=== PATIENT | female | born 1950 | race African-American/Black ===

== ENCOUNTER 2016-04-24 16:32 | Emergency (ER) | payer OTHER ==
[2016-04-24 17:28] VITALS: BMI 26.6
[2016-04-24] MEDS ORDERED: ACETAMINOPHEN 325 MG TABLET (FP) PO ONE (17:28)
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
[2016-04-24] MEDS ORDERED: ACETAMINOPHEN 325 MG TABLET (FP) ONE (17:51)
[2016-04-24 21:42] VITALS: BP 128/74; PULSE 80; TEMP 98.6
== END 2016-04-24 21:36 | disposition home or self-care (01) ==
LOC: JER 16:32
DX: Z04.1 Encounter for examination and observation following transport accident (principal); V43.52XA Car driver injured in collision with other type car in traffic accident, initial encounter; Y93.89 Activity, other specified; Y92.410 Unspecified street and highway as the place of occurrence of the external cause; M26.602 Left temporomandibular joint disorder, unspecified; I10 Essential (primary) hypertension; R42 Dizziness and giddiness; Z87.891 Personal history of nicotine dependence
CPT/HCPCS: 70450-TC; 71020-TC; 72070-TC; 72100-TC; 72125-TC; 73562-TC-RT; 99281-25

== ENCOUNTER 2017-03-17 01:41 | Emergency (ER) | payer OTHER ==
[2017-03-17] MEDS ORDERED: SODIUM CHLORIDE 500 ML IV STA (02:23)
[2017-03-17] MEDS ORDERED: KETOROLAC TROMETHAMINE 30 MG/1 ML VIAL IVPUSH ONE (02:23)
[2017-03-17] MEDS ORDERED: diazePAM CARPU-JECT 10 MG/2 ML DISP.SYRIN IVPUSH ONE (02:23)
--- NOTE | 2017-03-17 02:29 | PDOC ---
History of Present Illness - General Chief Complaint: Pain Stated Complaint: NECK PAIN Time Seen by Provider: 03/17/17 02:08 History Source: Patient Exam Limitations: No Limitations - History of Present Illness Initial Comments: 03/17/17 02:25 66yo Female patient w/ PmHx: HTN, Lumbar and Cervical Radiculopathy presents to ED c/o neck pain, immobility. Patient states symptoms began yesterday after having MRI of neck and brain. Patient states she was subjected to uncomfortable position and woke up this morning with neck pain. She reports using OTC topical preparations with minimal relief. She denies any other complaints at this time. Orthopedist- Dr. Quiroz ([facility]). Timing/Duration: 24 hours, getting worse Severity: severe Modifying Factors: improves with: immobilization, medication, rest Associated Symptoms: reports: headaches. denies: denies symptoms, chest pain, cough, diaphoresis, fever/chills, loss of appetite, malaise, nausea/vomiting, rash, seizure, shortness of breath, syncope, weakness, other Aspirin Received prior to arrival: No: no aspirin today, unknown, 81 mg x 1, 81 mg x 2, 81 mg x 3, 81 mg x 4, 325 mg x 1, provided at home, provided by EMS, provided by ED Past History - Travel Traveled outside of the country in the last 30 days: No Close contact w/someone who was outside of country & ill: No - Past Medical History Allergies/Adverse Reactions: Allergies Allergy/AdvReac Type Severity Reaction Status Date / Time morphine Allergy Verified 03/17/17 02:05 Penicillins Allergy Verified 03/17/17 02:05 Home Medications: Ambulatory Orders Unobtainable Home Med List 0 dose .ROUTE UTDICT 11/25/11 Amlodipine Besylate [Norvasc] mg PO DAILY 11/01/12 Gabapentin [Neurontin] mg PO Q8H 11/01/12 Magnesium mg PO 11/01/12 Dexamethasone [Decadron -] 4 mg PO BID #14 tablet 03/17/17 Ibuprofen [Motrin -] 600 mg PO Q6H PRN #20 tablet 03/17/17 Methocarbamol [Robaxin -] 500 mg PO TID PRN #21 tablet 03/17/17 COPD: No HTN: Yes Other medical history: Lumbar radiculopathy - Immunization History Td Vaccination: Yes Immunization Up to Date: Yes - Suicide/Smoking/Psychosocial Hx Smoking Status: No Smoking History: Never smoked Years of Tobacco Use: 0 Have you smoked in the past 12 months: No Number of Cigarettes Smoked Daily: 0 Cigars Per Day: 0 Information on smoking cessation initiated: No Hx Alcohol Use: No Drug/Substance Use Hx: No Substance Use Type: None Review of Systems - Review of Systems Able to Perform ROS?: Yes Is the patient limited Maldivian proficient: No Constitutional: No: Chills, Fever Respiratory: No: Cough, Shortness of Breath, Stridor, Wheezing Cardiac (ROS): No: Chest Pain Musculoskeletal: Yes: Neck Pain Neurological: Yes: Headache All Other Systems: Reviewed and Negative *Physical Exam - Vital Signs Last Vital Signs Temp Pulse Resp BP Pulse Ox 98.1 F 82 18 145/81 97 03/17/17 02:05 03/17/17 02:05 03/17/17 02:05 03/17/17 02:05 03/17/17 02:05 - Physical Exam General Appearance: Yes: Nourished, Appropriately Dressed, Moderate Distress. No: Apparent Distress, Mild Distress, Severe Distress HEENT: positive: EOMI, WILLIS, Normal ENT Inspection, Normal Voice, Symmetrical, TMs Normal, Pharynx Normal. negative: Pharyngeal Erythema, Tonsillar Exudate, Tonsillar Erythema, Nasal Congestion, Rhinorrhea, Sinus Tenderness, TM Bulging, TM Dull, TM Erythema Neck: positive: Trachea midline, Supple, Decreased range of motion, Tender lateral. negative: Rigid, Stridor, Lymphadenopathy (R), Lymphadenopathy (L), Rigidity, Tender midline Respiratory/Chest: positive: Lungs Clear, Normal Breath Sounds. negative: Chest Tender, Respiratory Distress, Accessory Muscle Use, Labored Respiration, Rapid RR, Decreased Breath Sounds, Paradoxal Breathing, Rhonchi, Stridor, Wheezing Cardiovascular: positive: Regular Rhythm, Regular Rate Musculoskeletal: positive: Normal Inspection. negative: CVA Tenderness, Decreased Range of Motion, Vertebral Tenderness Extremity: positive: Normal Capillary Refill, Normal Inspection, Normal Range of Motion. negative: Pedal Edema, Swelling, Calf Tenderness, Erythema, Inflammation Integumentary: positive: Normal Color, Dry, Warm Neurologic: positive: house admin II-XII NML intact, Fully Oriented, Alert, Normal Mood/ Affect, Normal Response, Motor Strength 5/5 ED Treatment Course - LABORATORY CBC & Chemistry Diagram: 03/17/17 02:42 03/17/17 02:42 - RADIOLOGY Radiology Studies Ordered: Category Date Time Status CERVICAL SPINE CT W/O CONTR [CT] Stat CT Scan 03/17/17 02:[address] WITHOUT CONTRAST [CT] Stat CT Scan 03/17/17 02:23 Ordered *DC/Admit/Observation/Transfer Diagnosis at time of Disposition: Cervical radiculopathy - Discharge Dispostion Disposition: HOME Condition at time of disposition: Improved Admit: No - Prescriptions Prescriptions: Dexamethasone [Decadron -] 4 mg PO BID #14 tablet Ibuprofen [Motrin -] 600 mg PO Q6H PRN #20 tablet PRN Reason: Mild Pain Methocarbamol [Robaxin -] 500 mg PO TID PRN #21 tablet PRN Reason: neck and back pain - Referrals Referrals: Azra Gregory MD [Primary Care Provider] - Flavio Syed MD [Staff Physician] - - Patient Instructions Printed Discharge Instructions: DI for Cervical Radiculopathy Additional Instructions: Follow up with your orthopedist/primary care provider this week as scheduled. Or follow up with Dr. Syed (Orthopedic). Call to schedule your appointments. Take medications as prescribed. Return if symptoms worsen or any concerns for further evaluation. Take warm showers. Rest. Apply warm compress as needed. Print Language: SPANISH - Post Discharge Activity
[2017-03-17 02:34] VITALS: BP 145/81; PULSE 82; TEMP 98.1; BMI 26.0
[2017-03-17] MEDS ORDERED: METHOCARBAMOL 500 MG TABLET PO ONE (02:43)
[2017-03-17] MEDS ORDERED: DEXAMETHASONE SOD PHOSPHATE 10 MG/1 ML VIAL IVPUSH ONE (02:47)
[2017-03-17 03:33] LABS: MCH 26.2 pg (25.7-33.7); MEAN CELL VOLUME 81.8 fl (80-96); MEAN PLT VOLUME 9.6 fl (7.5-11.1); PLATELET COUNT 248 K/MM3 (134-434); RDW 14.9 % (11.6-15.6); WHITE BLOOD COUNT 5.7 K/mm3 (4.0-10.0)
[2017-03-17] MEDS ORDERED: DEXAMETHASONE SOD PHOSPHATE 10 MG/1 ML VIAL ONE (03:53)
[2017-03-17] MEDS ORDERED: METHOCARBAMOL 500 MG TABLET ONE (03:53)
[2017-03-17] MEDS ORDERED: KETOROLAC TROMETHAMINE 30 MG/1 ML VIAL ONE (03:53)
[2017-03-17 04:00] LABS: ALBUMIN 3.6 g/dl (3.4-5.0); ALK PHOS 115 U/L (45-117); ANION GAP 9 (8-16); BILIRUBIN,TOTAL 0.3 mg/dL (0.2-1.0); CALCIUM 8.8 mg/dL (8.5-10.1); CO2 26 mmol/L (21-32); CPK 115 IU/L (26-192); CREATININE 0.7 mg/dL (0.55-1.02); GLUCOSE,RANDOM 102 mg/dL (74-106); SGOT/AST 13 U/L (15-37); SGPT/ALT 20 U/L (12-78); TOT PROT 7.6 g/dl (6.4-8.2)
== END 2017-03-17 04:58 | disposition home or self-care (01) ==
LOC: JER 01:41
PROC: 3E0337Z Introduction of Electrolytic and Water Balance Substance into Peripheral Vein, Percutaneous Approach (ICD-10-PCS; principal; 2017-03-17)
PROC: 3E0333Z Introduction of Anti-inflammatory into Peripheral Vein, Percutaneous Approach (ICD-10-PCS; 2017-03-17)
PROC: 3E0333Z Introduction of Anti-inflammatory into Peripheral Vein, Percutaneous Approach (ICD-10-PCS; 2017-03-17)
DX: M54.12 Radiculopathy, cervical region (principal)
CPT/HCPCS: 36415; 70450-TC; 72125-TC; 80053; 82550; 85027; 99283-25

== ENCOUNTER 2018-02-26 15:21 | Emergency (ER) | payer OTHER ==
[2018-02-26 15:40] VITALS: BP 143/93; PULSE 82; TEMP 98.8; BMI 25.7
--- NOTE | 2018-02-26 15:44 | PDOC ---
Rapid Medical Evaluation Chief Complaint: Rectal Bleed Time Seen by Provider: 02/26/18 15:41 Medical Evaluation: Allergies Allergy/AdvReac Type Severity Reaction Status Date / Time morphine Allergy Verified 02/26/18 15:40 Penicillins Allergy Verified 02/26/18 15:40 Vital Signs Temp Pulse Resp BP Pulse Ox 98.8 F 82 18 143/93 98 02/26/18 15:34 02/26/18 15:34 02/26/18 15:34 02/26/18 15:34 02/26/18 15:34 02/26/18 15:41 I have performed a brief in-person evaluation of this patient. The patient presents with a chief complaint of: h/o constipation and hemorrhoids presenting with blood in stool this AM. Denies any other symptoms Pertinent physical exam findings: A&O x 3 I have ordered the following: cbc,cmp, UA The patient will proceed to the ED for further evaluation. Discharge Disposition - Diagnosis Rectal bleed - Referrals - Patient Instructions - Post Discharge Activity
--- NOTE | 2018-02-26 16:15 | PDOC ---
Attending Attestation - HPI HPI: 02/26/18 18:03 The patient is a 67 year old female with a significant past medical history of chronic back pain and HTN who presents to the ED with complaints of rectal bleeding since earlier today. Patient reports 3 months of constipation with one bowel movement per day. Patient reports she had one bowel movement earlier today that was consistent of blood streaks in the stool. Patient called her GI and PCP and was told to come into the ED. Denies fever or chills. Denies abdominal pain, nausea, vomiting, or diarrhea. Denies any other symptoms. - Physicial Exam PE: 02/26/18 18:03 Constitutional: Awake, alert, oriented. No acute distress. Head: Normocephalic. Atraumatic Eyes: PERRL. EOMI. Conjunctivae are not pale. ENT: Mucous membranes are moist and intact. Posterior pharynx without exudates or erythema. Uvula midline. Neck: Supple. Full ROM. No lymphadenopathy. Cardiovascular: Regular rate. Regular rhythm. S1, S2 regular. Distal pulses are 2+ and symmetric. Pulmonary/Chest: No evidence of respiratory distress. Clear to auscultation bilaterally No wheezing, rales or rhonchi. Abdominal: Soft and non-distended. There is no tenderness. No rebound, guarding or rigidity. No organomegaly. No palpable masses. Good bowel sounds. Back: No CVA tenderness. Musculoskeletal: No edema. No cyanosis. No clubbing. Full range of motion in all extremities. Nocalf tenderness. Radial/pedal pulses are intact and 2+ bilaterally Skin: Skin is warm and dry. No petechiae. No purpura. Neurological: Alert and oriented to person, place, and time. Cranial nerves II -XII are grossly intact. Normal speech. Strength is grossly symmetric. No sensory deficits. Psychiatric: Good eye contact. Normal interaction, affect and behavior. <Jovanni Hernandez - Last Filed: 02/26/18 18:03> - Resident Resident Name: Clay Mena - ED Attending Attestation I have performed the following: I have examined & evaluated the patient, The case was reviewed & discussed with the resident, I agree w/resident's findings & plan, Exceptions are as noted - Medical Decision Making 02/26/18 16:15 I, Dr. June Levy, DO, attest that this document has been prepared under my direction and personally reviewed by me in its entirety. I further attest, that it accurately reflects all work, treatment, procedures and medical decision -making performed by me. 02/26/18 17:46 a/p: 67yo female with 1 episode of BRBPR -blood streaked stool -constipation x 3 months -will send labs, rectal for heme, ct abd/pelvis w iv contrast only -will monitor and reassess -will give ivf hydration 02/26/18 18:31 hgb 12 02/26/18 21:[address] findings and labs in full detail pt has a lower in supervisor and will call tomorrow for an appt has GI for follow up of rectal bleeding discussed granulomatous disease near spleen for follow up with GI discussed pulmonary nodules <June Levy - Last Filed: 02/26/18 21:59> *DC/Admit/Observation/Transfer - Discharge Dispostion Decision to Admit order: No <June Levy - Last Filed: 02/26/18 21:59> Diagnosis at time of Disposition: Rectal bleed, Pulmonary nodule, Enlarged ovary, Hepatic cyst, Renal cyst - Discharge Dispostion Disposition: HOME Condition at time of disposition: Stable - Referrals Referrals: Ezra Gregory [Primary Care Provider] - Joaquin Wolfe MD [Staff Physician] - Issac Greene MD [Staff Physician] - Indio Solo MD [Staff Physician] - - Patient Instructions Printed Discharge Instructions: DI for Rectal Bleeding Additional Instructions: Please follow up with your REVENUE SETTLEMENTS ADMINISTRATOR tomorrow for further evaluation of the enlarged ovary. Please follow up with you GI specialist for eval of rectal bleeding today. Please follow up with your PMD and the lung specialist for eval of the pulmonary nodule. Please return to the ED with any further concerns or complaints. - Post Discharge Activity Attestations - Attestations 02/26/18 18:12 Documentation prepared by Jovanni Hernandez, acting as healthcare or medical for June Levy DO <Jovanni Hernandez - Last Filed: 02/26/18 18:03>
[2018-02-26 16:31] LABS: BASO % 1.2 % (0-2.0); EOS % 1.5 % (0-4.5); HEMOGLOBIN 12.1 GM/dL (10.7-15.3); MCH 27.5 pg (25.7-33.7); MCHC 33.6 g/dl (32.0-36.0); MEAN CELL VOLUME 81.9 fl (80-96); MEAN PLT VOLUME 9.6 fl (7.5-11.1); MONO % 8.8 % (3.8-10.2); NEUT % 49.5 % (42.8-82.8); PLATELET COUNT 234 K/MM3 (134-434); RDW 14.6 % (11.6-15.6); WHITE BLOOD COUNT 5.4 K/mm3 (4.0-10.0)
[2018-02-26 16:47] LABS: PROTHROMBIN TIME (PATIENT) 11.8 SEC (9.7-13.0)
[2018-02-26 16:48] LABS: URINE APPEARANCE CLEAR; URINE BILIRUBIN NEGATIVE (<2.0 mg/dL); URINE COLOR LTYELLOW; URINE GLUCOSE (UA) NEGATIVE (NEGATIVE); URINE KETONE NEGATIVE (NEGATIVE); URINE LEUK ESTERASE NEGATIVE (NEGATIVE); URINE NITRITE NEGATIVE (NEGATIVE); URINE PROTEIN NEGATIVE (NEGATIVE)
[2018-02-26 16:49] LABS: ACTIVATED PTT 29.2 SECONDS (25.2-36.5)
--- NOTE | 2018-02-26 17:03 | PDOC ---
History of Present Illness - General Chief Complaint: Rectal Bleed Stated Complaint: RECTAL BLEED Time Seen by Provider: 02/26/18 15:41 History Source: Patient Exam Limitations: No Limitations - History of Present Illness Initial Comments: 02/26/18 16:53 67 yo female pmh chronic back pain (takes Naproxen, no opiates and not on blood thinners) and HTN presents to the ED from home for blood in the stool. States she had 1 episode of blood streaked stools this am without blood filling the toilet, no blood after wiping or any blood leaking from the anus. Pt admits to 3 months of constipation averaging 1 BM per day with stools described as hard and painful to pass. Denies dizziness, lethargy, abdominal pain, CP, SOB, F/C/N/ V. Of note, pt states she had an episode 1 year ago and was told by orthopedic surgery that it was due an issue related to her back pain but has not had this issue since. Also, pt did call her GI Doctor (Renate) and PCP (Colt) regarding her blood streaked stools and was told to come to the ER. Past History - Past Medical History Allergies/Adverse Reactions: Allergies Allergy/AdvReac Type Severity Reaction Status Date / Time morphine Allergy Verified 02/26/18 15:40 Penicillins Allergy Verified 02/26/18 15:40 Home Medications: Ambulatory Orders Amlodipine Besylate [Norvasc] 5 mg PO DAILY 11/01/12 COPD: No HTN: Yes - Immunization History Td Vaccination: Yes Immunization Up to Date: Yes - Suicide/Smoking/Psychosocial Hx Smoking Status: No Smoking History: Never smoked Years of Tobacco Use: 0 Have you smoked in the past 12 months: No Number of Cigarettes Smoked Daily: 0 Cigars Per Day: 0 Hx Alcohol Use: No Drug/Substance Use Hx: No Substance Use Type: None Review of Systems - Review of Systems Constitutional: No: Chills, Fever Respiratory: No: Shortness of Breath Cardiac (ROS): No: Chest Pain, Edema ABD/GI: Yes: Constipated (3 months hard stool with painful BM). No: Nausea, Vomiting : No: Burning, Dysuria, Flank Pain Musculoskeletal: Yes: Back Pain (chronic) Neurological: No: Numbness, Paresthesia *Physical Exam - Vital Signs Last Vital Signs Temp Pulse Resp BP Pulse Ox 98.8 F 82 18 143/93 98 02/26/18 15:34 02/26/18 15:34 02/26/18 15:34 02/26/18 15:34 02/26/18 15:34 - Physical Exam General Appearance: Yes: Nourished, Appropriately Dressed. No: Apparent Distress HEENT: positive: EOMI Respiratory/Chest: positive: Lungs Clear, Normal Breath Sounds. negative: Crackles, Wheezing Cardiovascular: positive: Regular Rhythm, Regular Rate, S1, S2. negative: Edema , JVD, Murmur Vascular Pulses: Dorsalis-Pedis (R): 4+, Doralis-Pedis (L): 4+ Gastrointestinal/Abdominal: positive: Normal Bowel Sounds, Flat, Soft. negative : Distended, Guarding, Rebound, Tenderness Rectal Exam: positive: heme negative stool, normal exam, normal rectal tone. negative: hemorrhoids Extremity: positive: Normal Capillary Refill, Normal Inspection Integumentary: positive: Normal Color, Dry, Warm Neurologic: positive: Fully Oriented, Alert, Normal Mood/Affect, Normal Response Moderate Sedation - Procedure Monitoring Vital Signs: Procedure Monitoring Vital Signs Temperature 98.8 F 02/26/18 15:34 Pulse Rate 82 02/26/18 15:34 Respiratory Rate 18 02/26/18 15:34 Blood Pressure 143/93 02/26/18 15:34 O2 Sat by Pulse Oximetry (%) 98 02/26/18 15:34 ED Treatment Course - LABORATORY CBC & Chemistry Diagram: 02/26/18 16:04 02/26/18 16:04 - ADDITIONAL ORDERS Additional order review: Laboratory Results 02/26/18 02/26/18 16:04 16:04 PT with INR 11.80 INR 1.00 PTT (Actin FS) 29.2 Urine Color Ltyellow Urine Appearance Clear Urine pH 6.0 Ur Specific [place] 1.023 Urine Protein Negative Urine Glucose (UA) Negative Urine Ketones Negative Urine Blood Negative Urine Nitrite Negative Urine Bilirubin Negative Urine Urobilinogen 2.0 H Ur Leukocyte Esterase Negative 02/26/18 16:04 RBC 4.40 MCV 81.9 MCHC 33.6 RDW 14.6 MPV 9.6 Neutrophils % 49.5 Lymphocytes % 39.0 Monocytes % 8.8 Eosinophils % 1.5 Basophils % 1.2 Medical Decision Making - Medical Decision Making 02/26/18 19:40 67 yo female presents to the ED for 1 episode of blood streaked bowels today and 3 months of constipation with hard stools and pain on defecation. Denies lethargy or weakness DDX: hemorrhoids, anal fissures, diverticulitis, colitis, colon cancer Vitals wnl PE see note Lab work WNL, no anemia Neg stool occult CT abdomen pelvis negative for acute pathology Pt sent home with GI follow up *DC/Admit/Observation/Transfer Diagnosis at time of Disposition: Rectal bleed, Pulmonary nodule, Enlarged ovary, Hepatic cyst, Renal cyst - Discharge Dispostion Disposition: HOME - Referrals Referrals: Ezra Gregory [Primary Care Provider] - Joaquin Wolfe MD [Staff Physician] - Indio Solo MD [Staff Physician] - Issac Greene MD [Staff Physician] - - Patient Instructions Printed Discharge Instructions: DI for Rectal Bleeding Additional Instructions: Please follow up with your [facility] tomorrow for further evaluation of the enlarged ovary. Please follow up with you GI specialist for eval of rectal bleeding today. Please follow up with your PMD and the lung specialist for eval of the pulmonary nodule. Please return to the ED with any further concerns or complaints. - Post Discharge Activity
[2018-02-26 17:38] LABS: ALBUMIN 3.7 g/dl (3.4-5.0); ALK PHOS 113 U/L (45-117); ANION GAP 6 MMOL/L (8-16); BILIRUBIN,TOTAL 0.3 mg/dL (0.2-1); BLOOD UREA NITROGEN 26 mg/dL (7-18); CALCIUM 8.9 mg/dL (8.5-10.1); CHLORIDE 106 mmol/L (98-107); CO2 27 mmol/L (21-32); CREATININE 0.7 mg/dL (0.55-1.3); GLUCOSE,RANDOM 87 mg/dL (74-106); POTASSIUM 4.2 mmol/L (3.5-5.1); SGOT/AST 20 U/L (15-37); SGPT/ALT 24 U/L (13-61); SODIUM 139 mmol/L (136-145); TOT PROT 7.7 g/dl (6.4-8.2)
[2018-02-26] MEDS ORDERED: SODIUM CHLORIDE 0.9% 1000 ML INFUS.BAG IV ONE (17:42)
== END 2018-02-26 22:15 | disposition home or self-care (01) ==
LOC: JER 15:21
DX: K62.5 Hemorrhage of anus and rectum (principal); K59.00 Constipation, unspecified; I10 Essential (primary) hypertension; M54.5 Low back pain; G89.29 Other chronic pain; R91.1 Solitary pulmonary nodule; N28.1 Cyst of kidney, acquired; K76.89 Other specified diseases of liver; N83.8 Other noninflammatory disorders of ovary, fallopian tube and broad ligament
CPT/HCPCS: 36415; 74177-TC; 80053; 81003; 82272; 85025; 85610; 85730; 86850; 86900; 86901; 87086; 99281-25; J7030

== ENCOUNTER 2020-05-10 15:22 | Inpatient (IN) | payer OTHER ==
[2020-05-10 16:55] VITALS: BMI 26.6
[2020-05-10] MEDS ORDERED: KETOROLAC TROMETHAMINE 60 MG/2 ML VIAL IM ONE (17:19)
[2020-05-10] MEDS ORDERED: LIDOCAINE 5% TOPICAL PATCH TP ONE (17:19)
[2020-05-10] MEDS ORDERED: LIDOCAINE 5% TOPICAL PATCH ONE (18:31)
[2020-05-10] MEDS ORDERED: KETOROLAC TROMETHAMINE 15 MG/ML VIAL ONE (18:32)
[2020-05-10 19:05] LABS: BASO % 0.3 % (0-2.0); HEMATOCRIT 32.8 % (32.4-45.2); HEMOGLOBIN 10.9 GM/dL (10.7-15.3); LYMPH % 22.6 % (8-40); MCH 28.7 pg (25.7-33.7); MCHC 33.3 g/dl (32.0-36.0); MEAN CELL VOLUME 86.2 fl (80-96); MEAN PLT VOLUME 9.4 fl (7.5-11.1); MONO % 10.6 % (3.8-10.2); NEUT % 65.5 % (42.8-82.8); PLATELET COUNT 272 K/MM3 (134-434); RBC 3.81 M/mm3 (3.60-5.2); RDW 14.3 % (11.6-15.6); WHITE BLOOD COUNT 3.6 K/mm3 (4.0-10.0)
[2020-05-10 19:11] LABS: INR 1.07 (0.83-1.09); PROTHROMBIN TIME (PATIENT) 13.1 SEC (9.7-13.0)
[2020-05-10 19:23] LABS: CHLORIDE 105 mmol/L (98-107); POTASSIUM 3.9 mmol/L (3.5-5.1); SODIUM 138 mmol/L (136-145)
[2020-05-10 19:25] LABS: CALCIUM 8.5 mg/dL (8.5-10.1)
[2020-05-10 19:26] LABS: ALBUMIN 2.9 g/dl (3.4-5.0); ANION GAP 5 MMOL/L (8-16); BLOOD UREA NITROGEN 18.2 mg/dL (7-18); CO2 28 mmol/L (21-32); GLUCOSE,RANDOM 132 mg/dL (74-106)
[2020-05-10 19:29] LABS: CREATININE 0.9 mg/dL (0.55-1.3); SGOT/AST 32 U/L (15-37); SGPT/ALT 34 U/L (13-61)
[2020-05-10 19:30] LABS: BILIRUBIN,TOTAL 0.3 mg/dL (0.2-1); TOT PROT 6.8 g/dl (6.4-8.2)
[2020-05-10 19:31] LABS: ALK PHOS 76 U/L (45-117)
[2020-05-10 20:20] LABS: EPI CELLS >36 /uL (0-25.1); HYALINE CASTS 106 /uL (0-3.1); URINE APPEARANCE CLOUDY; URINE BACTERIA 433 /uL (0-1359); URINE BILIRUBIN 1+ (NEGATIVE); URINE COLOR DK YELLOW; URINE GLUCOSE (UA) NEGATIVE (NEGATIVE); URINE KETONE 1+ (NEGATIVE); URINE LEUK ESTERASE 1+ (NEGATIVE); URINE NITRITE NEGATIVE (NEGATIVE); URINE PROTEIN 2+ (NEGATIVE); URINE RBC 16 /uL (0-23.9); URINE WBC 70 /uL (0-25.8)
[2020-05-10] MEDS ORDERED: AZITHROMYCIN IVPB 500 MG in DEXTROSE 5%-WATER - 250 ML IVPB ONE (20:56)
[2020-05-10] MEDS ORDERED: CEFTRIAXONE 1,000 MG in DEXTROSE 5%-WATER - 50 ML IVPB ONE (20:57)
[2020-05-10] MEDS ORDERED: SODIUM CHLORIDE 1,000 ML IV STA (20:58)
[2020-05-10] MEDS ORDERED: AZITHROMYCIN IVPB 500 MG/250 ML BAG IVPB ONE (21:30)
[2020-05-10] MEDS ORDERED: CEFTRIAXONE 1 GM/50 ML BAG ONE (21:30)
[2020-05-11] MEDS ORDERED: ACETAMINOPHEN 325 MG TABLET (FP) PO ONE (05:15)
[2020-05-11] MEDS ORDERED: ACETAMINOPHEN 325 MG TABLET (FP) ONE (05:22)
[2020-05-11 06:01] LABS: HEMATOCRIT 30.4 % (32.4-45.2); HEMOGLOBIN 10.5 GM/dL (10.7-15.3); MCH 30.1 pg (25.7-33.7); MCHC 34.4 g/dl (32.0-36.0); MEAN CELL VOLUME 87.5 fl (80-96); MEAN PLT VOLUME 9.3 fl (7.5-11.1); PLATELET COUNT 264 K/MM3 (134-434); RBC 3.48 M/mm3 (3.60-5.2); RDW 14.2 % (11.6-15.6); WHITE BLOOD COUNT 3.4 K/mm3 (4.0-10.0)
[2020-05-11 06:19] LABS: POTASSIUM 3.6 mmol/L (3.5-5.1)
[2020-05-11 06:21] LABS: BLOOD UREA NITROGEN 10.3 mg/dL (7-18)
[2020-05-11 06:25] LABS: CREATININE 0.5 mg/dL (0.55-1.3)
[2020-05-11] MEDS ORDERED: AZITHROMYCIN IVPB 500 MG/250 ML BAG IVPB SCH (10:00)
[2020-05-11] MEDS ORDERED: amLODIPine BESYLATE 5 MG TABLET (FP) PO SCH (10:00)
[2020-05-11] MEDS ORDERED: ENOXAPARIN NA (PORCINE) 30 MG/0.3 ML DISP.SYRIN SQ SCH (10:00)
[2020-05-11] MEDS ORDERED: CEFTRIAXONE 1 GM in DEXTROSE 5%-WATER - 50 ML IVPB SCH (10:00)
[2020-05-11] MEDS ORDERED: amLODIPine BESYLATE 5 MG TABLET (FP) ONE (10:45)
[2020-05-11] MEDS ORDERED: ENOXAPARIN NA (PORCINE) 30 MG/0.3 ML DISP.SYRIN SQ ONE (10:46)
[2020-05-11] MEDS ORDERED: CEFTRIAXONE 1 GM/50 ML BAG ONE (10:46)
[2020-05-11] MEDS ORDERED: AZITHROMYCIN IVPB 500 MG/250 ML BAG IVPB ONE (13:06)
[2020-05-11 18:13] VITALS: BP 135/74; PULSE 95
[2020-05-11 18:33] VITALS: TEMP 97.6
== END 2020-05-11 19:02 | disposition home or self-care (01) | DRG 195 ==
LOC: JER 15:22 → JERBED 22:01
PROVIDERS: ADMIT Internal Medicine; ATTEND Internal Medicine
DX: J18.9 Pneumonia, unspecified organism (principal); J45.909 Unspecified asthma, uncomplicated; I10 Essential (primary) hypertension
CPT/HCPCS: 36415; 71046-TC-FY; 71250-TC; 80048; 80053; 81003; 82308; 82550; 82728; 83615; 83735; 84484; 85025; 85027; 85379; 85610; 85651; 86140; 87040; 87086; 93005; 93010; 99285-25; C9803; U0003

== ENCOUNTER 2024-03-11 17:36 | Emergency (ER) | payer OTHER ==
[2024-03-11 17:49] VITALS: BP 181/92; PULSE 85; RESP 20; TEMP 98.8; BMI 26.8
[2024-03-11] MEDS ORDERED: ACETAMINOPHEN INJECTION 100 ML ONE (19:04)
[2024-03-11] MEDS: ACETAMINOPHEN 1000 MG/100 ML BAG IVPB ONE (19:08)
[2024-03-11 19:09] LABS: HEMATOCRIT 35.3 % (32.4-45.2); HEMOGLOBIN 11.4 GM/dL (10.7-15.3); LYMPH % 39.7 % (8-40); MCH 25.9 pg (25.7-33.7); MCHC 32.3 g/dl (32.0-36.0); MEAN CELL VOLUME 80.2 fl (80-96); MEAN PLT VOLUME 8.6 fl (7.5-11.1); MONO % 9.9 % (3.8-10.2); NEUT % 47.4 % (42.8-82.8); PLATELET COUNT 235 10^3/uL (134-434); RDW 15.1 % (11.6-15.6); WHITE BLOOD COUNT 4.9 K/mm3 (4.0-10.0)
[2024-03-11 19:17] LABS: INR 0.99 (0.83-1.09); PROTHROMBIN TIME (PATIENT) 11.4 SEC (9.7-13.0)
[2024-03-11 19:20] LABS: ACTIVATED PTT 35.1 SECONDS (25.2-36.5)
[2024-03-11 19:29] LABS: POTASSIUM 3.9 mmol/L (3.5-5.1)
[2024-03-11 19:31] LABS: CALCIUM 9.7 mg/dL (8.5-10.1)
[2024-03-11 19:32] LABS: ALBUMIN 3.7 g/dl (3.4-5.0); BLOOD UREA NITROGEN 21.5 mg/dL (7-18)
[2024-03-11 19:35] LABS: CREATININE 0.6 mg/dL (0.55-1.3)
[2024-03-11 19:36] LABS: BILIRUBIN,TOTAL 0.3 mg/dL (0.2-1); TOT PROT 7.5 g/dl (6.4-8.2)
== END 2024-03-11 21:53 | disposition home or self-care (01) ==
LOC: JER 17:36
DX: R05.1 Acute cough (principal); R06.02 Shortness of breath; R07.89 Other chest pain; Z20.822 Contact with and (suspected) exposure to COVID-19
CPT/HCPCS: 0241U-QW; 36415; 71046-TC-FY; 71275-TC; 80053; 84484; 85025; 85610; 85730; 93005; 93010; 99285-25; Q9967

== ENCOUNTER 2024-03-12 19:56 | Emergency (ER) | payer OTHER ==
[2024-03-12 20:15] VITALS: BP 168/96; PULSE 92; RESP 18; TEMP 98.4; BMI 27.1
[2024-03-12] MEDS ORDERED: DEXAMETHASONE SOD PHOSPHATE 10 MG/1 ML VIAL ONE (21:48)
[2024-03-12] MEDS ORDERED: IBUPROFEN 600 MG TABLET (FP) PO ONE (21:48)
[2024-03-12] MEDS: IBUPROFEN 600 MG TABLET (FP) PO ONE (21:51)
[2024-03-12] MEDS: DEXAMETHASONE SOD PHOSPHATE 10 MG/1 ML VIAL PO ONE (21:51)
== END 2024-03-12 22:53 | disposition home or self-care (01) ==
LOC: JERFT 19:56
DX: R22.1 Localized swelling, mass and lump, neck (principal); R59.1 Generalized enlarged lymph nodes; B34.9 Viral infection, unspecified
CPT/HCPCS: 87651; 99283-25; J1100

== ENCOUNTER 2024-04-15 14:38 | Emergency (ER) | payer OTHER ==
[2024-04-15 14:51] VITALS: TEMP 98; BMI 28.3
[2024-04-15] MEDS ORDERED: ACETAMINOPHEN INJECTION 100 ML ONE (16:58)
[2024-04-15 17:05] LABS: BASO % 0.5 % (0-2.0); EOS % 2.3 % (0-4.5); HEMATOCRIT 35.1 % (32.4-45.2); HEMOGLOBIN 11.1 GM/dL (10.7-15.3); LYMPH % 36.3 % (8-40); MCH 25.4 pg (25.7-33.7); MCHC 31.5 g/dl (32.0-36.0); MEAN CELL VOLUME 80.5 fl (80-96); MEAN PLT VOLUME 9.1 fl (7.5-11.1); MONO % 9.7 % (3.8-10.2); NEUT % 51.2 % (42.8-82.8); PLATELET COUNT 244 10^3/uL (134-434); RBC 4.36 M/mm3 (3.60-5.2); RDW 14.7 % (11.6-15.6); WHITE BLOOD COUNT 5.9 K/mm3 (4.0-10.0)
[2024-04-15] MEDS: SODIUM CHLORIDE 0.9% 1000 ML INFUS.BAG IV STA (17:06)
[2024-04-15] MEDS: ACETAMINOPHEN 1000 MG/100 ML BAG IVPB ONE (17:06)
[2024-04-15 17:20] LABS: POTASSIUM 3.6 mmol/L (3.5-5.1)
[2024-04-15 17:22] LABS: CALCIUM 9.8 mg/dL (8.5-10.1)
[2024-04-15 17:23] LABS: ALBUMIN 3.6 g/dl (3.4-5.0); BLOOD UREA NITROGEN 27.5 mg/dL (7-18)
[2024-04-15 17:26] LABS: CREATININE 0.7 mg/dL (0.55-1.3)
[2024-04-15 17:28] LABS: BILIRUBIN,TOTAL 0.2 mg/dL (0.2-1); TOT PROT 7.1 g/dl (6.4-8.2)
[2024-04-15 18:16] LABS: HIV INTERPRETATION NEGATIVE (NEGATIVE)
[2024-04-15 20:14] VITALS: BP 166/100; PULSE 74; RESP 18
== END 2024-04-15 20:31 | disposition home or self-care (01) ==
LOC: JER 14:38
PROC: 3E033NZ Introduction of Analgesics, Hypnotics, Sedatives into Peripheral Vein, Percutaneous Approach (ICD-10-PCS; principal; 2024-04-15)
DX: R51.9 Headache, unspecified (principal); R07.9 Chest pain, unspecified; Z20.822 Contact with and (suspected) exposure to COVID-19
CPT/HCPCS: 0241U-QW; 36415; 71046-TC-FY; 80053; 83735; 84484; 85025; 86803; 87389; 93005; 93010; 99285-25; J0131

== ENCOUNTER 2024-04-16 19:00 | Emergency (ER) | payer OTHER ==
[2024-04-16 19:07] VITALS: RESP 18; BMI 27.1
[2024-04-16 19:54] VITALS: TEMP 98.1
[2024-04-16] MEDS ORDERED: ACETAMINOPHEN 325 MG TABLET (FP) ONE (20:19)
[2024-04-16] MEDS: ACETAMINOPHEN 500 MG TABLET (FP) PO ONE (20:21)
[2024-04-16 20:44] VITALS: BP 152/99; PULSE 80
== END 2024-04-16 23:51 | disposition home or self-care (01) ==
LOC: JER 19:00
DX: I10 Essential (primary) hypertension (principal)
CPT/HCPCS: 36415; 82550; 82553; 84484; 93005; 93010; 99284-25

== ENCOUNTER 2024-12-08 16:48 | Emergency (ER) | payer OTHER ==
[2024-12-08 16:58] VITALS: RESP 20; BMI 27.4
[2024-12-08 18:41] LABS: MCHC 31.4 g/dl (32.2-35.5); MEAN CELL VOLUME 83.2 fl (79.4-94.8); MEAN PLT VOLUME 11.4 fl (9.4-12.3); RDW 13.8 % (12.4-16.6)
[2024-12-08 18:51] LABS: INR 0.97 (0.83-1.09); PROTHROMBIN TIME (PATIENT) 10.6 SEC (9.7-13.0)
[2024-12-08 18:54] LABS: ACTIVATED PTT 30.5 SECONDS (25.2-36.5)
[2024-12-08 19:11] LABS: GLUCOSE,RANDOM 113.0 mg/dL (74-106); TOT PROT 7.4 g/dl (6.4-8.2)
[2024-12-08 19:12] LABS: CO2 28.0 mmol/L (21-32)
[2024-12-08 19:14] LABS: ALK PHOS 91.0 U/L (40-150)
[2024-12-08 19:16] LABS: SGOT/AST 27.0 U/L (5-34); SGPT/ALT 18.0 U/L (0-55)
[2024-12-08 19:17] LABS: CREATININE 1.24 mg/dL (0.55-1.3)
[2024-12-08 19:38] LABS: HCV DIAGNOSTIC IN-HOUSE W/RFLX NON-REACTIVE (NONREACTIVE); HIV INTERPRETATION NEGATIVE (NEGATIVE)
[2024-12-08 20:56] VITALS: BP 135/92; PULSE 85; TEMP 98
== END 2024-12-08 21:41 | disposition home or self-care (01) ==
LOC: JER 16:48
DX: R05.9 Cough, unspecified (principal); R04.2 Hemoptysis; J02.9 Acute pharyngitis, unspecified; R06.02 Shortness of breath
CPT/HCPCS: 36415; 71046-TC-FY; 71275-TC; 80053; 83735; 84484; 85025; 85610; 85730; 86803; 87389; 87637-QW; 93005; 93010; 99285-25; Q9967

== ENCOUNTER 2025-01-20 11:37 | Emergency (ER) | payer OTHER ==
[2025-01-20 11:43] VITALS: BP 132/64; PULSE 86; RESP 20; TEMP 98.2; BMI 27.4
[2025-01-20] MEDS ORDERED: ACETAMINOPHEN 500 MG TABLET (FP) ONE (12:57)
[2025-01-20] MEDS: ACETAMINOPHEN 500 MG TABLET (FP) PO ONE (13:10)
== END 2025-01-20 16:46 | disposition home or self-care (01) ==
LOC: JERFT 11:37
DX: F07.81 Postconcussional syndrome (principal); R51.9 Headache, unspecified; M54.2 Cervicalgia; M54.50 Low back pain, unspecified; V47.5XXA Car driver injured in collision with fixed or stationary object in traffic accident, initial encounter
CPT/HCPCS: 70450-TC; 72125-TC; 72131-TC; 99284-25